=== PATIENT | male | born 1965 | race Caucasian/White ===

== ENCOUNTER 2019-02-14 19:45 | Emergency (ER) | payer SELFPAY ==
[2019-02-14 22:37] LABS: Absolute Lymphocytes (CBC) 3.3 K/uL (0.7-4.9); Basophils % 0.3 % (0-1.3); Lymphocytes % 33.4 % (15.3-44.8); MPV 8.4 fL (7.6-11.3); RBC Red Blood Cell Count 4.45 M/uL (4.33-5.43)
[2019-02-14 22:52] LABS: ALT/SGPT 24 U/L (12-78); AST/SGOT 31 U/L (15-37); Albumin 3.3 g/dL (3.4-5.0); Alkaline Phosphatase 110 U/L (45-117); BUN Blood Urea Nitrogen 14 mg/dL (7-18); Bicarbonate 25 mmol/L (21-32); Bilirubin Direct 0.1 mg/dL (0-0.2); Bilirubin Total 0.4 mg/dL (0.2-1.0); Glucose Level 64 mg/dL (74-106); Protein, Total 6.8 g/dL (6.4-8.2); Sodium Level 140 mmol/L (136-145)
[2019-02-14 22:56] LABS: Potassium 2.5 mmol/L (3.5-5.1)
[2019-02-14] MEDS ORDERED: POTASSIUM 25 MEQ EFFERV TAB ONE (23:01)
[2019-02-15 02:07] LABS: Urine Blood NEGATIVE (NEG); Urine Glucose NEGATIVE (NEG); Urine Protein NEGATIVE (NEG); Urine Specific Gravity 1.015 (1.005-1.030); Urine pH 7.5 (5.0-7.0)
[2019-02-15 02:17] LABS: Barbiturates NEGATIVE (NEGATIVE); Benzodiazepines NEGATIVE (NEGATIVE); Cocaine NEGATIVE (NEGATIVE); METHAMPHETAM NEGATIVE (NEGATIVE); Methadone NEGATIVE (NEGATIVE); Opiates NEGATIVE (NEGATIVE); Phencyclidine NEGATIVE (NEGATIVE); THC Cannibis NEGATIVE (NEGATIVE)
[2019-02-15] MEDS ORDERED: ACETAMINOPHEN 500 MG TAB ONE (03:51)
[2019-02-15] MEDS ORDERED: FAMOTIDINE 20 MG TAB ONE (04:10)
--- NOTE | 2019-02-15 06:30 | EKG ---
Test Date: 2019-02-14 Test Time: 20:26:47 Translator/Interpreter: PASCUAL MEASUREMENT RESULTS: Intervals: Rate: 67 VT: 180 QRSD: 110 QT: 676 QTc: 714 [place]: P: 43 VT: 180 QRS: -36 T: 52 INTERPRETIVE STATEMENTS: Normal sinus rhythm Left axis deviation Intraventricular conduction delay Abnormal ECG No previous ECG available for comparison Electronically Signed On 02-15-19 06:29:43 CDT by Ariel House
[2019-02-15] MEDS ORDERED: POTASSIUM 25 MEQ EFFERV TAB ONE ×3 (07:11→18:52)
[2019-02-15] MEDS ORDERED: ACETAMINOPHEN 325 MG TABLET ONE (12:20)
[2019-02-15] MEDS ORDERED: NS KCL 20MEQ 1,000 ML IV ONE (14:35)
[2019-02-15] MEDS ORDERED: KCL 20 MEQ/100 mL IVPB 40 MEQ/200 ML BAG IV ONE (14:36)
--- NOTE | 2019-02-15 18:48 | ER ---
Nurse's Notes [facility] Name: Fantasma Rdz Age: 54 yrs Sex: Male : 1965 Arrival Date: 02/14/2019 Time: 19:49 Bed 20 Private MD: Diagnosis: Schizophrenia;Hypokalemia;Psychotic disorder with hallucinations due to known physiological condition Presentation: 02/14 19:54 Presenting complaint: EMS states: Pt hearing auditory hallucinations telling him to do things. PT stated he wanted to go back to [facility]. Transition of care: patient was not received from another setting of care. Onset of symptoms was February 14, 2019. Risk Assessment: Do you want to hurt yourself or someone else? Patient reports no desire to harm self or others. Initial Sepsis Screen: Does the patient meet any 2 criteria? No. Patient's initial sepsis screen is negative. Does the patient have a suspected source of infection? No. Patient's initial sepsis screen is negative. Care prior to arrival: None. 19:54 Method Of Arrival: EMS: [facility] 19:54 Acuity: RUT 2 Historical: - Allergies: 20:00 Aspirin; 20:00 PENICILLINS; 20:00 ambien; - Home Meds: 20:00 gabapentin 400 mg oral cap 1 cap 3 times per day [Active]; Propranolol Oral [Active]; ziprasidone HCl 60 mg oral cap 1 cap daily [Active]; bupropion HCl 150 mg Oral TbER 1 tab once daily [Active]; [place] Carbonate Oral [Active]; furosemide 40 mg Oral tab 1 tab 2 times per day [Active]; - PMHx: 20:00 Unable to obtain; - PSHx: 20:00 Elbow Surgery; - Immunization history:: Adult Immunizations unknown. - Social history:: Smoking status: Patient/guardian denies using tobacco. - Ebola Screening: : Patient negative for fever greater than or equal to 101.5 degrees Fahrenheit, and additional compatible Ebola Virus Disease symptoms Patient denies exposure to infectious person. Screenin:56 Abuse screen: Denies threats or abuse. Denies injuries from another. Nutritional screening: No deficits noted. Tuberculosis screening: No symptoms or risk factors identified. Fall Risk None identified. Assessment: 20:00 General: Appears in no apparent distress. Behavior is cooperative. Pain: Complains of pain in Right Knee Pain does not radiate. Pain currently is 4 out of 10 on a pain scale. Quality of pain is described as aching, Pain began gradually. Neuro: Level of Consciousness is awake, alert, obeys commands, Oriented to person, place, time, situation. Cardiovascular: Heart tones S1 S2. Cardiovascular: Heart tones. Respiratory: Reports Respiratory: Airway is patent Respiratory effort is even, unlabored, Respiratory pattern is regular, symmetrical. GI: Abdomen is round non-distended. : No signs and/or symptoms were reported regarding the genitourinary system. EENT: No signs and/or symptoms were reported regarding the EENT system. Derm: Skin is intact, Skin is pink, warm \T\ dry. Musculoskeletal: Circulation, motion, and sensation intact. 21:20 Reassessment: Patient appears in no apparent distress at this time. No changes from previously documented assessment. Patient and/or family updated on plan of care and expected duration. Pain level reassessed. Patient is alert, oriented x 3, equal unlabored respirations, skin warm/dry/pink. 22:40 Reassessment: Patient appears in no apparent distress at this time. No changes from previously documented assessment. Patient and/or family updated on plan of care and expected duration. Pain level reassessed. Patient is alert, oriented x 3, equal unlabored respirations, skin warm/dry/pink. 02/15 00:01 Reassessment: Patient appears in no apparent distress at this time. No changes from previously documented assessment. Patient and/or family updated on plan of care and expected duration. Pain level reassessed. Patient is alert, oriented x 3, equal unlabored respirations, skin warm/dry/pink. PT BS was 64, Pt stated he hasn't had dinner yet, sandwich and juice was given. BS recheck 95 Patient denies pain at this time. 01:06 Reassessment: Patient appears in no apparent distress at this time. No changes from previously documented assessment. Patient and/or family updated on plan of care and expected duration. Pain level reassessed. Patient is alert, oriented x 3, equal unlabored respirations, skin warm/dry/pink. Pt sleeping well no signs of distress noted Patient denies pain at this time. 02:05 Reassessment: Patient appears in no apparent distress at this time. No changes from previously documented assessment. Patient and/or family updated on plan of care and expected duration. Pain level reassessed. Patient is alert, oriented x 3, equal unlabored respirations, skin warm/dry/pink. Pt was given bath and oral care Patient denies pain at this time. 03:20 Reassessment: Patient appears in no apparent distress at this time. Patient and/or jd3 family updated on plan of care and expected duration. Pain level reassessed. Patient is alert, oriented x 3, equal unlabored respirations, skin warm/dry/pink. pt resting in be with eyes closed, even and unlabored respirations. awaiting disposition. 04:14 Reassessment: Patient appears in no apparent distress at this time. Patient and/or jd3 family updated on plan of care and expected duration. Pain level reassessed. Patient is alert, oriented x 3, equal unlabored respirations, skin warm/dry/pink. pt requesting heartburn mediation, provider notified, new orders received, see MAR. 05:14 Reassessment: Patient appears in no apparent distress at this time. Patient and/or jd3 family updated on plan of care and expected duration. Pain level reassessed. Patient is alert, oriented x 3, equal unlabored respirations, skin warm/dry/pink. awaiting disposition. pt resting in bed watching TV. Patient states feeling better. 06:42 Reassessment: Patient appears in no apparent distress at this time. No changes from j previously documented assessment. Patient and/or family updated on plan of care and expected duration. Pain level reassessed. Patient is alert, oriented x 3, equal unlabored respirations, skin warm/dry/pink. 07:10 General: Appears in no apparent distress. comfortable, Behavior is calm, cooperative. sv Pain: Denies pain. Neuro: Level of Consciousness is awake, alert, obeys commands, Oriented to person, place, Moves all extremities. Full function Gait is steady. Respiratory: Respiratory effort is even, unlabored, Respiratory pattern is regular, symmetrical. Derm: Skin is normal. 09:32 Reassessment: Patient appears in no apparent distress at this time. No changes from sv previously documented assessment. Patient and/or family updated on plan of care and expected duration. Pain level reassessed. Patient is alert, oriented x 3, equal unlabored respirations, skin warm/dry/pink. Pt noted to be speaking to himself in the room. 10:11 Reassessment: Mallorie SKINNER from [facility] stated that his potassium is too low at this sv time and we can fax the new potassium level once it is 3.5. 10:29 Reassessment: Lab at the bedside obtaining repeat potassium level. sv 12:00 Reassessment: Patient appears in no apparent distress at this time. No changes from sv previously documented assessment. Patient and/or family updated on plan of care and expected duration. Pain level reassessed. Patient is alert, oriented x 3, equal unlabored respirations, skin warm/dry/pink. Pt given lunch tray, c/o back pain. Informed Dr Muse, medication ordered. 14:09 Reassessment: Patient appears in no apparent distress at this time. No changes from sv previously documented assessment. Pt appears to be resting with eyes closed, no distress noted. Respiratory: Respiratory effort is even, unlabored. 16:00 Reassessment: Patient appears in no apparent distress at this time. No changes from sv previously documented assessment. Patient and/or family updated on plan of care and expected duration. Pain level reassessed. Patient is alert, oriented x 3, equal unlabored respirations, skin warm/dry/pink. 18:25 Reassessment: Patient appears in no apparent distress at this time. Patient and/or sv family updated on plan of care and expected duration. Pain level reassessed. Patient is alert, oriented x 3, equal unlabored respirations, skin warm/dry/pink. 19:15 Reassessment: Patient appears in no apparent distress at this time. Patient and/or jb4 family updated on plan of care and expected duration. Pain level reassessed. Patient is alert, oriented x 3, equal unlabored respirations, skin warm/dry/pink. 20:30 Reassessment: Patient appears in no apparent distress at this time. Patient and/or jb4 family updated on plan of care and expected duration. Pain level reassessed. Patient is alert, oriented x 3, equal unlabored respirations, skin warm/dry/pink. 21:30 Reassessment: Patient appears in no apparent distress at this time. Patient and/or jb4 family updated on plan of care and expected duration. Pain level reassessed. Patient is alert, oriented x 3, equal unlabored respirations, skin warm/dry/pink. 22:30 Reassessment: Patient appears in no apparent distress at this time. Patient and/or jb4 family updated on plan of care and expected duration. Pain level reassessed. Patient is alert, oriented x 3, equal unlabored respirations, skin warm/dry/pink. 23:30 Reassessment: Patient appears in no apparent distress at this time. Patient and/or jb4 family updated on plan of care and expected duration. Pain level reassessed. Patient is alert, oriented x 3, equal unlabored respirations, skin warm/dry/pink. Psych: 02/14 20:02 Subjective: Patient's mood is sad, Hallucinations are auditory. Objective: Patient is wh cooperative, Speech is normal, Affect is flat. Interventions: Removed personal items and placed in bag. Patient placed in hospital gown. Searched person for dangerous items. Urine collected and sent for urine drug test. Belonging list filled out. Suicide Risk Assessment: Sad Person Scale: Sex of patient: Male: Score 1 point. Age of patient: Score 0 point if patient falls outside of specified age parameters. Safety Checks: Personal items have been removed. Pt has been placed in a hallway bed/chair. No visitors are present at this time. Pt denies substance abuse. Commitment: Patient will be a voluntary commitment. Vital Signs: 20:03 BP 112 / 79; Pulse 68; Resp 18; Temp 99.4; Pulse Ox 99% ; Weight 110.68 kg; Height 5 wh ft. 10 in. (177.80 cm); 21:20 BP 110 / 62; Pulse 66; Resp 18; Pulse Ox 98% on R/A; wh 22:35 BP 124 / 80; Pulse 66; Resp 18; Pulse Ox 95% ; wh 02/15 00:01 BP 114 / 67; Pulse 67; Resp 18; Pulse Ox 99% on R/A; wh 01:06 BP 115 / 64; Pulse 68; Resp 16; Pulse Ox 96% on R/A; wh 02:05 BP 138 / 93; Pulse 75; Resp 18; Pulse Ox 98% on R/A; wh 06:15 BP 104 / 62 LA Sitting (auto/lg); Pulse 80 MON; Resp 16 S; Pulse Ox 100% on R/A; ds4 09:58 BP 119 / 62; Pulse 71; Resp 17; Pulse Ox 98% on R/A; jb1 15:35 BP 120 / 67; Pulse 81; Resp 18; Pulse Ox 97% on R/A; jb1 18:51 BP 114 / 61; Pulse 77; Resp 17; Temp 98.9(O); Pulse Ox 98% on R/A; jb1 20:30 BP 152 / 80; Pulse 75; Resp 18; Pulse Ox 95% on R/A; jb4 21:30 BP 141 / 81; Pulse 72; Resp 16; Pulse Ox 100% on R/A; jb4 22:30 BP 106 / 52; Pulse 75; Resp 16; Pulse Ox 99% on R/A; jb4 02/16 00:00 BP 133 / 58; Pulse 73; Resp 16; Pulse Ox 99% on R/A; jb4 00:47 BP 142 / 75; Pulse 75; Resp 16; Temp 98.6(TE); Pulse Ox 99% ; jb4 02/14 20:03 Body Mass Index 35.01 (110.68 kg, 177.80 cm) ED Course: 02/14 19:49 Patient arrived in ED. wh 19:53 Won Lau is Primary Nurse. wh 19:55 James Melo MD is Attending Physician. tw4 19:56 Triage completed. wh 20:02 Arm band placed on left wrist. wh 20:03 Patient has correct armband on for positive identification. Placed in gown. Bed in low wh position. Call light in reach. Side rails up X 1. Pulse ox on. NIBP on. 20:45 Missed attempt(s): 22 gauge in left antecubital area. wh 21:12 Missed attempt(s): 20 gauge in right forearm. Bleeding controlled, band aid applied, ds4 catheter tip intact. 02/15 02:01 Urine Drug Screen Sent. ds4 07:52 Primary Nurse role handed off by Won Lau sv 07:52 Susan Toney, RN is Primary Nurse. sv 10:52 refaxed chart to [facility]. bd 11:55 Lab(s) recollected, by farm labor contractor, sent to lab. sv 14:31 Attending Physician role handed off by James Melo MD danita 14:31 Fernando Muse MD is Attending Physician. danita 14:39 LAB Add On Sent. sv 14:45 Inserted saline lock: 20 gauge in right forearm, using aseptic technique. Flushed right sv forearm with 5 ml normal saline. 19:01 Primary Nurse role handed off by Susan Toney RN sv 19:06 Nilton Rosen, SUSANNE is Primary Nurse. jb4 02/16 00:47 No provider procedures requiring assistance completed. IV discontinued, intact, jb4 bleeding controlled, No redness/swelling at site. Pressure dressing applied. Administered Medications: 02/14 23:03 Drug: Potassium Effervescent Tablet 50 mEq Route: PO; 02/15 01:26 Follow up: Response: No adverse reaction wh 03:58 Drug: Tylenol 500 mg Route: PO; jd3 04:55 Follow up: Response: No adverse reaction jd3 04:13 Drug: Pepcid 20 mg Route: PO; jd3 05:10 Follow up: Response: No adverse reaction jd3 07:27 Drug: Potassium Effervescent Tablet 50 mEq Route: PO; sv 08:00 Follow up: Response: No adverse reaction ss 12:00 Drug: Tylenol 650 mg Route: PO; sv 13:00 Follow up: Response: No adverse reaction sv 15:00 Drug: Potassium Chloride 20 mEq Route: IV; Rate: per protocol; Site: right forearm; sv 16:52 Follow up: Response: No adverse reaction; IV Status: Completed infusion; IV Intake: sv 100ml 15:00 Drug: Potassium Effervescent Tablet 50 mEq Route: PO; sv 16:00 Follow up: Response: No adverse reaction sv 15:00 Drug: NS 0.9% with KCl 20 mEq/L 1000 ml Route: IV; Rate: 125 ml/hr; Site: right forearm;sv 23:00 Follow up: Response: No adverse reaction; IV Status: Completed infusion; IV Intake: jb4 1000ml 16:53 Drug: Potassium Chloride 20 mEq Route: IV; Rate: per protocol; Site: right forearm; sv 19:00 Follow up: Response: No adverse reaction; IV Status: Completed infusion jb4 19:03 Drug: Potassium Effervescent Tablet 25 mEq Route: PO; sv 19:30 Follow up: Response: No adverse reaction jb4 Intake: 16:52 IV: 100ml; Total: 100ml. sv 23:00 IV: 1000ml; Total: 1100ml. jb4 Outcome: 18:47 ER care complete, transfer ordered by MD. samayoa 02/16 00:47 Transferred by ground EMS Transfer form completed. jb4 Condition: stable Discharge instructions given to patient, Instructed on the need for transfer, Demonstrated understanding of instructions. 00:54 Patient left the ED. jb4 Signatures: Brian Pickett jb1 Sandra Goldstein Stephanie, RN Fernando Patel MD MD cha Smirch, Shelby, RN RN ss Swanson, Donovan ds4 Nilton Rosen RN RN jb4 Won Lau Chavez Lim RN RN jd3 James Melo MD MD tw4 Corrections: (The following items were deleted from the chart) 02/14 23:15 19:54 Risk Assessment: Do you want to hurt yourself or someone else? Patient reports desire/thoughts of hurting themselves or someone else. Provider notified. 23:16 20:00 PSHx: Unable to obtain; [facility] 23:17 20:02 Suicide Risk Assessment: Sad Person Scale: Sex of patient: Male: Score 1 point. Age of patient: Score 0 point if patient falls outside of specified age parameters. Depression: Score 1 point if signs of depression are present. Previous Attempt: Score 0 point if patient has not previously attempted suicide.
--- NOTE | 2019-02-15 18:48 | EDPHYS ---
Physician Documentation [facility] Name: Fantasma Rdz Age: 54 yrs Sex: Male : 1965 Arrival Date: 02/14/2019 Time: 19:49 Bed 20 Private MD: ED Physician Fernando Muse HPI: 02/15 07:02 This 54 yrs old Male presents to ER via EMS with complaints of Psych Problem. tw4 07:02 The patient presents to the emergency department with psychosis, has experienced tw4 auditory hallucinations, voices are telling patient to commit sucide, has experienced visual hallucinations. Onset: The symptoms/episode began/occurred. Historical: - Allergies: 02/14 20:00 Aspirin; 20:00 PENICILLINS; 20:00 ambien; - Home Meds: 20:00 gabapentin 400 mg oral cap 1 cap 3 times per day [Active]; Propranolol Oral [Active]; ziprasidone HCl 60 mg oral cap 1 cap daily [Active]; bupropion HCl 150 mg Oral TbER 1 tab once daily [Active]; [place] Carbonate Oral [Active]; furosemide 40 mg Oral tab 1 tab 2 times per day [Active]; - PMHx: 20:00 Unable to obtain; - PSHx: 20:00 Elbow Surgery; - Immunization history:: Adult Immunizations unknown. - Social history:: Smoking status: Patient/guardian denies using tobacco. - Ebola Screening: : Patient negative for fever greater than or equal to 101.5 degrees Fahrenheit, and additional compatible Ebola Virus Disease symptoms Patient denies exposure to infectious person. ROS: 02/15 07:10 Constitutional: Negative for fever, chills, and weight loss, Eyes: Negative for injury, tw4 pain, redness, and discharge, Cardiovascular: Negative for chest pain, palpitations, and edema, Respiratory: Negative for shortness of breath, cough, wheezing, and pleuritic chest pain, Abdomen/GI: Negative for abdominal pain, nausea, vomiting, diarrhea, and constipation, Back: Negative for injury and pain, MS/Extremity: Negative for injury and deformity, Skin: Negative for injury, rash, and discoloration, Neuro: Negative for headache, weakness, numbness, tingling, and seizure. Psych: Positive for auditory hallucinations, visual hallucinations, Negative for anxiety, depression, drug dependence, suicide gesture, suicidal ideation. Exam: 07:10 Constitutional: This is a well developed, well nourished patient who is awake, alert, tw4 and in no acute distress. Head/Face: Normocephalic, atraumatic. Chest/axilla: Normal chest wall appearance and motion. Nontender with no deformity. No lesions are appreciated. Cardiovascular: Regular rate and rhythm with a normal S1 and S2. No gallops, murmurs, or rubs. Normal PMI, no JVD. No pulse deficits. Respiratory: Lungs have equal breath sounds bilaterally, clear to auscultation and percussion. No rales, rhonchi or wheezes noted. No increased work of breathing, no retractions or nasal flaring. Abdomen/GI: Soft, non-tender, with normal bowel sounds. No distension or tympany. No guarding or rebound. No evidence of tenderness throughout. Back: No spinal tenderness. No costovertebral tenderness. Full range of motion. Skin: Warm, dry with normal turgor. Normal color with no rashes, no lesions, and no evidence of cellulitis. MS/ Extremity: Pulses equal, no cyanosis. Neurovascular intact. Full, normal range of motion. Neuro: Awake and alert, GCS 15, oriented to person, place, time, and situation. Cranial nerves II-XII grossly intact. Motor strength 5/5 in all extremities. Sensory grossly intact. Cerebellar exam normal. Normal gait. 07:10 Psych: Behavior/mood is pleasant, cooperative, Affect is flat, Oriented to person, place, time, Patient has no thoughts/intents to harm self or others. Judgement / Insight is impaired. Delusions/hallucinations are present and described as telling him to hurt himself. Vital Signs: 02/14 20:03 BP 112 / 79; Pulse 68; Resp 18; Temp 99.4; Pulse Ox 99% ; Weight 110.68 kg; Height 5 wh ft. 10 in. (177.80 cm); 21:20 BP 110 / 62; Pulse 66; Resp 18; Pulse Ox 98% on R/A; wh 22:35 BP 124 / 80; Pulse 66; Resp 18; Pulse Ox 95% ; wh 02/15 00:01 BP 114 / 67; Pulse 67; Resp 18; Pulse Ox 99% on R/A; wh 01:06 BP 115 / 64; Pulse 68; Resp 16; Pulse Ox 96% on R/A; 02:05 BP 138 / 93; Pulse 75; Resp 18; Pulse Ox 98% on R/A; 06:15 BP 104 / 62 LA Sitting (auto/lg); Pulse 80 MON; Resp 16 S; Pulse Ox 100% on R/A; ds4 09:58 BP 119 / 62; Pulse 71; Resp 17; Pulse Ox 98% on R/A; jb1 15:35 BP 120 / 67; Pulse 81; Resp 18; Pulse Ox 97% on R/A; jb1 18:51 BP 114 / 61; Pulse 77; Resp 17; Temp 98.9(O); Pulse Ox 98% on R/A; jb1 20:30 BP 152 / 80; Pulse 75; Resp 18; Pulse Ox 95% on R/A; jb4 21:30 BP 141 / 81; Pulse 72; Resp 16; Pulse Ox 100% on R/A; jb4 22:30 BP 106 / 52; Pulse 75; Resp 16; Pulse Ox 99% on R/A; jb4 02/16 00:00 BP 133 / 58; Pulse 73; Resp 16; Pulse Ox 99% on R/A; jb4 00:47 BP 142 / 75; Pulse 75; Resp 16; Temp 98.6(TE); Pulse Ox 99% ; 4 02/14 20:03 Body Mass Index 35.01 (110.68 kg, 177.80 cm) MDM: 02/14 19:55 Patient medically screened. [facility] 02/14 20:10 Order name: Acetaminophen; Complete Time: 22:57 [facility] 02/14 20:10 Order name: Basic Metabolic Panel; Complete Time: 22:57 [facility] 02/14 22:57 Interpretation: Normal except: K 2.5; GLUC 64; CRE 1.50; GFR 49. [facility] 02/14 20:10 Order name: CBC with Diff; Complete Time: 22:57 [facility] 02/14 22:57 Interpretation: Normal except: HGB 12.0; HCT 36.0; RDW 17.2. [facility] 02/14 20:10 Order name: ETOH Level; Complete Time: 14:32 [facility] 02/14 20:10 Order name: Hepatic Function; Complete Time: 22:57 [facility] 02/14 22:57 Interpretation: Normal except: ALB 3.3; A/G 0.9. [facility] 02/14 20:10 Order name: Salicylate; Complete Time: 14:32 [facility] 02/14 20:10 Order name: Urine Drug Screen; Complete Time: 14:32 tw4 02/15 00:08 Order name: glucometer results - FOR PT WITH NO ID; Complete Time: 14:32 wh 02/15 00:12 Order name: Glucose, Ancillary Testing; Complete Time: 14:32 EDMS 02/15 02:01 Order name: Urine Dipstick--Ancillary (enter results); Complete Time: 14:32 4 02/15 06:17 Order name: Potassium; Complete Time: 14:32 j 02/15 10:14 Order name: Potassium; Complete Time: 14:32 02/14 20:10 Order name: EKG; Complete Time: 20:10 [facility] 02/15 07:14 Order name: Diet Regular; Complete Time: 07:14 02/15 11:40 Order name: Diet Regular; Complete Time: 11:40 02/15 14:34 Order name: Phosphorus; Complete Time: 18:17 [facility] 02/15 14:35 Order name: LAB Add On bd 02/15 18:18 Order name: Chem 7; Complete Time: 23:06 [facility] 02/14 20:10 Order name: EKG - Nurse/Tech; Complete Time: 21:15 [facility] 02/14 20:10 Order name: IV Saline Lock; Complete Time: 22:40 [facility] 02/14 20:10 Order name: Labs collected and sent; Complete Time: 22:40 [facility] 02/14 20:10 Order name: Urine Dipstick-Ancillary (obtain specimen); Complete Time: 02:01 [facility] 02/15 11:10 Order name: Labs - recollect needed; Complete Time: 11:55 bd Administered Medications: 23:03 Drug: Potassium Effervescent Tablet 50 mEq Route: PO; 02/15 01:26 Follow up: Response: No adverse reaction 03:58 Drug: Tylenol 500 mg Route: PO; jd3 04:55 Follow up: Response: No adverse reaction jd3 04:13 Drug: Pepcid 20 mg Route: PO; jd3 05:10 Follow up: Response: No adverse reaction jd3 07:27 Drug: Potassium Effervescent Tablet 50 mEq Route: PO; sv 08:00 Follow up: Response: No adverse reaction ss 12:00 Drug: Tylenol 650 mg Route: PO; sv 13:00 Follow up: Response: No adverse reaction sv 15:00 Drug: Potassium Chloride 20 mEq Route: IV; Rate: per protocol; Site: right forearm; sv 16:52 Follow up: Response: No adverse reaction; IV Status: Completed infusion; IV Intake: sv 100ml 15:00 Drug: Potassium Effervescent Tablet 50 mEq Route: PO; sv 16:00 Follow up: Response: No adverse reaction sv 15:00 Drug: NS 0.9% with KCl 20 mEq/L 1000 ml Route: IV; Rate: 125 ml/hr; Site: right forearm;sv 23:00 Follow up: Response: No adverse reaction; IV Status: Completed infusion; IV Intake: jb4 1000ml 16:53 Drug: Potassium Chloride 20 mEq Route: IV; Rate: per protocol; Site: right forearm; sv 19:00 Follow up: Response: No adverse reaction; IV Status: Completed infusion jb4 19:03 Drug: Potassium Effervescent Tablet 25 mEq Route: PO; sv 19:30 Follow up: Response: No adverse reaction jb4 Disposition: 02/15/19 18:47 Transfer ordered to Psych Facility. Diagnosis are Schizophrenia, Hypokalemia, Psychotic disorder with hallucinations due to known physiological condition. - Reason for transfer: Higher level of care. - Accepting physician is to psych. - Condition is Stable. - Problem is new. - Symptoms have improved. Signatures: Dispatcher [employer] EDMS Sandra Goldstein Stephanie, RN RN sv Anderson, Corey, MD MD cha Bryson, James RN RN jb4 Won Lau Chavez Lim RN RN jd3 Wadley, Terrence, MD MD tw4 Juhi Marmolejo RN ss Corrections: (The following items were deleted from the chart) 02/14 23:16 20:00 PSHx: Unable to obtain; [facility] 02/15 00:55 02/14 20:10 PROTIME (+INR)+COAG.LAB.BRZ ordered. EDMS EDMS 02/15 00:55 02/14 20:10 PTT, ACTIVATED+COAG.LAB.BRZ ordered. EDMS EDMS 02/16 00:54 10/30 18:47 02/15/2019 18:47 Transfer ordered to Psych Facility. Diagnosis is jb4 Schizophrenia; Hypokalemia; Psychotic disorder with hallucinations due to known physiological condition. Reason for transfer: Higher level of care. Accepting physician is to psych. Condition is Stable. Problem is new. Symptoms have improved. danita
[2019-02-15 20:36] LABS: Potassium 4.6 mmol/L (3.5-5.1)
[2019-02-16 01:21] VITALS: O2SAT 99
[2019-02-16 01:24] VITALS: BP 142/75; TEMP 98.6
== END 2019-02-16 00:54 ==
LOC: ER 19:45
DX: F20.9 Schizophrenia, unspecified (principal); E87.6 Hypokalemia; F06.8 Other specified mental disorders due to known physiological condition; Z88.0 Allergy status to penicillin; Z88.8 Allergy status to other drugs, medicaments and biological substances
CPT/HCPCS: 36415; 80048; 80076; 80320; 80329; 85025; 93005; 96361; 96365; 96366; 99285

== ENCOUNTER 2024-05-25 23:39 | Emergency (ER) | payer OTHER, SELFPAY ==
[2024-05-26] MEDS ORDERED: ONDANSETRON 4 MG/2 ML VIAL ONE (00:43)
[2024-05-26] MEDS ORDERED: NA CHLORIDE 0.9% 1,000 ML ONE (00:44)
[2024-05-26] MEDS ORDERED: FENTANYL CITR 100 MCG/2 ML ONE ×2 (00:44→02:42)
[2024-05-26 00:55] LABS: Absolute Basophils 0.1 K/uL (0-0.5); Absolute Eosinophils 0.2 K/uL (0-0.5); Absolute Lymphocytes (CBC) 2.4 K/uL (0.7-4.9); Absolute Monocytes 0.5 K/uL (0.1-1.3); Absolute Neutrophil 4.1 K/uL (1.8-8.0); Eosinophils % 2.6 % (0-4.4); Hematocrit 41.4 % (39.6-49.0); Hemoglobin 14.1 g/dL (13.6-17.9); Lymphocytes % 32.8 % (15.3-44.8); MCH 32.1 pg (27.0-35.0); MCV 94.3 fL (80-100); MPV 8.6 fL (7.6-11.3); Monocytes % 6.3 % (3.3-12.3); Neutrophils % 57.3 % (41.7-73.7); Nucleated Red Blood Cells % 0.2 % (0-0); Platelets 179 thou/uL (152-406); Red Cell Distribution Width 13.5 % (12.1-15.2)
[2024-05-26 01:12] LABS: Albumin 3.2 g/dL (3.4-5.0); Albumin/Globulin Ratio 0.9 (1.1-1.8); Bilirubin Total 0.2 mg/dL (0.2-1.0); Globulin 3.4 g/dL (2.3-3.5); Protein, Total 6.6 g/dL (6.4-8.2)
--- NOTE | 2024-05-26 05:00 | RAD REPORT ---
EXAM DESCRIPTION: Abdomen Pelvis W Contrast CLINICAL HISTORY: ABD PAIN COMPARISON: None Available. TECHNIQUE: CT of the abdomen and pelvis performed following the administration of IV contrast. No ora l contrast. This exam was performed according to our departmental dose-optimization program, which includes automated exposure control, adjustment of the mA and/or kV according to patient size and/or use of iterative reconstruction technique. FINDINGS: Lung Bases: Mild bibasilar atelectasis. Abdomen: Liver: Slightly lobulated contour, most pronounced in the left hepatic lobe which is small compared t o the right. No suspicious mass. Gallbladder: Surgically absent. No significant biliary dilatation. Spleen, Pancreas, and Adrenal Glands: The spleen, pancreas, and adrenal glands are unremarkable. Kidneys: No suspicious mass. No urinary tract calculi. No hydronephrosis. Vasculature: The aorta and IVC have normal caliber and position. Stomach: The stomach and duodenum have normal course. Other: No free intraperitoneal air. No free fluid or lymphadenopathy. Pelvis: Bladder: Decompressed. Bowel: No dilated loops of large or small bowel. Moderate stool in the colon. Appendix: Normal appendix. Pelvis: No suspicious mass. Bones: Postsurgical changes related to posterior yane and screw fixation at L4-5. Associated artifact from hardware obscures detail of adjacent structures. No suspicious bone lesions. IMPRESSION: 1. No acute abnormality on CT of the abdomen and pelvis. 2. Slightly lobulated contour of the liver. Correlate with any history of cirrhosis. 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 reporting system, reports are being shira d by the in-house radiologist without review as a courtesy to ensure prompt reporting the interpreting radiologist is fully responsible for the content of the report. Transcribed Date/Time: 05/26/2024 5:00 AM
--- NOTE | 2024-05-26 05:11 | ER ---
Nurse's Notes [facility] Name: Fantasma Rdz Age: 59 yrs Sex: Male : 1965 Arrival Date: 05/25/2024 Time: 23:39 Bed 14 Private MD: Diagnosis: Abdominal pain, unspecified Presentation: 05/25 23:40 Chief complaint: EMS states: toned out to [facility] for abdominal pain that me1 started about 1500 to RUQ, 8/10. Patient had a bm today and ate dinner about 16:30, tolerated well. Coronavirus screen: Vaccine status: Patient reports receiving the 2nd dose of the covid vaccine. Ebola Screen: No symptoms or risks identified at this time. Initial Sepsis Screen: Does the patient meet any 2 criteria? No. Patient's initial sepsis screen is negative. Does the patient have a suspected source of infection? No. Patient's initial sepsis screen is negative. Risk Assessment: Do you want to hurt yourself or someone else? Patient reports no desire to harm self or others. Onset of symptoms was May 25, 2024 at 15:00. 23:40 Method Of Arrival: EMS: [facility] 23:40 Acuity: RUT 3 me1 Triage Assessment: 23:43 General: Appears uncomfortable, Behavior is calm, cooperative. Pain: Complains of pain br2 in right upper quadrant Pain does not radiate. Pain currently is 8 out of 10 on a pain scale. GI: Abdomen is round Abdomen is tender to palpation in right upper quadrant Reports upper abdominal pain. Historical: - Allergies: 23:43 ambien; me1 23:43 Aspirin; me1 23:43 PENICILLINS; me1 23:43 dihydroergotamine; me1 23:43 Primaxin; me1 23:43 Toradol; me1 23:43 Vioxx; me1 23:43 ACETAMINOPHEN; me1 23:43 tramadol; me1 - PMHx: 23:44 Dementia; Hypothyroidism; Hypercholesterolemia; Schizophrenia; Bipolar disorder; me1 Hypertensive disorder; frostbite left foot; - Immunization history:: Adult Immunizations up to date. - Infectious Disease History:: Denies. - Social history:: Smoking status: unknown. - Family history:: not pertinent. Screenin:40 [facility] ED Fall Risk Assessment (Adult) History of falling in the last 3 months, br2 including since admission No falls in past 3 months (0 pts) Confusion or Disorientation No (0 pts) Intoxicated or Sedated No (0 pts) Impaired Gait No (0 pts) Mobility Assist Device Used No (0 pt) Altered Elimination No (0 pt) Score/Fall Risk Level 0 - 2 = Low Risk Oriented to surroundings. Abuse screen: Denies threats or abuse. Denies injuries from another. Nutritional screening: No deficits noted. Tuberculosis screening: No symptoms or risk factors identified. Assessment: 23:40 Reassessment: SEE TRIAGE ASSESSMENT. br2 05/26 05:51 Reassessment: Disposition pending, [facility] to arrange transportation. cp4 06:45 GI: Bowel sounds present X 4 quads. cp4 Vital Signs: 05/25 23:40 BP 127 / 81; Pulse 78; Resp 18; Temp 97.9; Pulse Ox 96% ; Weight 131.54 kg; Height 5 me1 ft. 10 in. ; Pain 8/10; 05/26 02:34 BP 172 / 105; Pulse 67; Resp 18; Pulse Ox 96% ; cp4 04:46 BP 152 / 90; Pulse 66; Resp 18; Pulse Ox 98% ; cp4 06:10 BP 140 / 95; Pulse 64; Resp 18; Pulse Ox 98% ; cp4 05/25 23:40 Body Mass Index 41.61 (131.54 kg, 177.8 cm) me1 02 23:40 Pain Scale: Adult mi1 ED Course: 05/25 23:40 Patient arrived in ED. me1 23:40 Nito Soria MD is Attending Physician. rt 23:40 Patient has correct armband on for positive identification. Provided Education on: PLAN br2 OF CARE. 23:40 Inserted saline lock: 20 gauge in right forearm, using aseptic technique. br2 23:43 Triage completed. me1 23:44 Arm band placed on Patient placed in an internal wait recliner. me1 05/26 00:27 Rosario Ryder, SUSANNE is Primary Nurse. br2 01:27 CT Abd/Pelvis - IV Contrast Only In Process Unspecified. EDMS 06:12 No provider procedures requiring assistance completed. cp4 06:44 intact, bleeding controlled, No redness/swelling at site. Pressure dressing applied. cp4 Administered Medications: 01:05 Drug: Ondansetron IVP 4 mg IVP once; over 2 minutes Route: IVP; Site: left forearm; br2 04:47 Follow up: Response: No adverse reaction cp4 01:05 Drug: NS 0.9% IV 1000 ml IV at 1 bolus Per protocol; to be given as a bolus over 60 br2 minutes Route: IV; Rate: 1 bolus; Site: left forearm; 04:47 Follow up: Response: No adverse reaction; IV Status: Completed infusion cp4 01:05 Drug: fentaNYL (PF) IVP 75 mcg IVP once Route: IVP; Site: left forearm; br2 04:47 Follow up: Response: No adverse reaction cp4 02:55 Drug: fentaNYL (PF) IVP 75 mcg IVP once Route: IVP; Site: right forearm; jj7 04:47 Follow up: Response: No adverse reaction cp4 Medication: 06:47 VIS not applicable for this client. cp4 Outcome: 05:11 Discharge ordered by . rt 06:44 Discharged to [facility] cp4 06:44 Condition: stable 06:44 Discharge instructions given to patient, EMS, Instructed on discharge instructions, follow up and referral plans. medication usage, Demonstrated understanding of instructions, follow-up care, medications, Prescriptions given X 1, 06:48 Patient left the ED. cp4 Signatures: Dispatcher [employer] Moraima Victor RN RN jj7 Nito Soria MD MD rt Bere Herrera RN RN me1 Cristal Tamez cp4 Rosario Ryder RN RN br2
--- NOTE | 2024-05-26 05:11 | EDPHYS ---
Physician Documentation [facility] Name: Fantasma Rdz Age: 59 yrs Sex: Male : 1965 Arrival Date: 05/25/2024 Time: 23:39 Bed 14 Private MD: ED Physician Nito Soria HPI: 05/26 00:31 This 59 yrs old Male presents to ER via EMS with complaints of Abdominal Pain. rt 00:31 Patient presents to the ED with a right upper quadrant pain starting at about 3. Has rt been progressively worsening. Reports nausea vomiting. Patient states that his normal bowel movement earlier today. States that his had previous bowel obstructions with similar symptoms to this. Denies other acute complaints at this time, symptoms are moderate in severity, no other aggravating alleviating factors.. Historical: - Allergies: 05/25 23:43 ambien; me1 23:43 Aspirin; me1 23:43 PENICILLINS; me1 23:43 dihydroergotamine; me1 23:43 Primaxin; me1 23:43 Toradol; me1 23:43 Vioxx; me1 23:43 ACETAMINOPHEN; me1 23:43 tramadol; me1 - PMHx: 23:44 Dementia; Hypothyroidism; Hypercholesterolemia; Schizophrenia; Bipolar disorder; me1 Hypertensive disorder; frostbite left foot; - Immunization history:: Adult Immunizations up to date. - Infectious Disease History:: Denies. - Social history:: Smoking status: unknown. - Family history:: not pertinent. ROS: 05/26 00:31 Constitutional: Negative for fever, chills, and weight loss, Cardiovascular: Negative rt for chest pain, palpitations, and edema, Respiratory: Negative for shortness of breath, cough, wheezing, and pleuritic chest pain, MS/Extremity: Negative for injury and deformity, Skin: Negative for injury, rash, and discoloration, Neuro: Negative for headache, weakness, numbness, tingling, and seizure, Abdomen/GI: Positive for abdominal pain, nausea, Exam: 00:31 Constitutional: This is a well developed, well nourished patient who is awake, alert, rt and in no acute distress. Head/Face: Normocephalic, atraumatic. Chest/axilla: Normal chest wall appearance and motion. Nontender with no deformity. No lesions are appreciated. Cardiovascular: Regular rate and rhythm with a normal S1 and S2. No gallops, murmurs, or rubs. Normal PMI, no JVD. No pulse deficits. Respiratory: Lungs have equal breath sounds bilaterally, clear to auscultation and percussion. No rales, rhonchi or wheezes noted. No increased work of breathing, no retractions or nasal flaring. Skin: Warm, dry with normal turgor. Normal color with no rashes, no lesions, and no evidence of cellulitis. MS/ Extremity: Pulses equal, no cyanosis. Neurovascular intact. Full, normal range of motion. Neuro: Awake and alert, GCS 15, oriented to person, place, time, and situation. Cranial nerves II-XII grossly intact. Motor strength 5/5 in all extremities. Sensory grossly intact. Cerebellar exam normal. Normal gait. 00:31 Abdomen/GI: Mild tenderness to the epigastrium without rebound, guarding, distention, Vital Signs: 05/25 23:40 BP 127 / 81; Pulse 78; Resp 18; Temp 97.9; Pulse Ox 96% ; Weight 131.54 kg; Height 5 me1 ft. 10 in. ; Pain 8/10; 05/26 02:34 BP 172 / 105; Pulse 67; Resp 18; Pulse Ox 96% ; cp4 04:46 BP 152 / 90; Pulse 66; Resp 18; Pulse Ox 98% ; cp4 06:10 BP 140 / 95; Pulse 64; Resp 18; Pulse Ox 98% ; cp4 05/25 23:40 Body Mass Index 41.61 (131.54 kg, 177.8 cm) me1 05/25 23:40 Pain Scale: Adult me1 MDM: 05/25 23:54 Medical Screening Exam initiated rt 05/26 05:43 Differential Diagnosis Nonspecific abdominal pain, pancreatitis, bowel obstruction. rt Data reviewed: vital signs, nurses notes, lab test result(s), radiologic studies. I considered the following discharge prescriptions or medication management in the emergency department Medications were administered in the Emergency Department. See MAR. Independent interpretation of the following test(s) in the Emergency Department CT Scan: My interpretation is No bowel obstruction syndrome interpretation of CT scan images. Care significantly affected by the following chronic conditions: Hypertension. Counseling: I had a detailed discussion with the patient and/or guardian regarding the historical points, exam findings, and any diagnostic results supporting the discharge/admit diagnosis, lab results, radiology results, the need for outpatient follow up. Response to treatment: the patient's symptoms have markedly improved after treatment. 05/25 23:58 Order name: CBC with Diff; Complete Time: 01:13 rt 05/25 23:58 Order name: CMP; Complete Time: 01:13 rt 05/25 23:58 Order name: Lipase; Complete Time: 01:13 rt 05/25 23:58 Order name: CT Abd/Pelvis - IV Contrast Only rt 05/25 23:58 Order name: IV Saline Lock; Complete Time: 01:54 rt 05/25 23:58 Order name: Labs collected and sent; Complete Time: 01:54 rt Administered Medications: 01:05 Drug: Ondansetron IVP 4 mg IVP once; over 2 minutes Route: IVP; Site: left forearm; br2 04:47 Follow up: Response: No adverse reaction cp4 01:05 Drug: NS 0.9% IV 1000 ml IV at 1 bolus Per protocol; to be given as a bolus over 60 br2 minutes Route: IV; Rate: 1 bolus; Site: left forearm; 04:47 Follow up: Response: No adverse reaction; IV Status: Completed infusion cp4 01:05 Drug: fentaNYL (PF) IVP 75 mcg IVP once Route: IVP; Site: left forearm; br2 04:47 Follow up: Response: No adverse reaction cp4 02:55 Drug: fentaNYL (PF) IVP 75 mcg IVP once Route: IVP; Site: right forearm; jj7 04:47 Follow up: Response: No adverse reaction cp4 Disposition Summary: 05/26/24 05:11 Discharge Ordered Notes: Location: Home rt Problem: new rt Symptoms: have improved rt Condition: Stable rt Diagnosis - Abdominal pain, unspecified rt Followup: rt - With: Private Physician - When: Today - Reason: Discharge Instructions: - Discharge Summary Sheet rt - Abdominal Pain, Adult rt Forms: - Medication Reconciliation Form rt - Antibiotic Education rt - Prescription Opioid Use rt - Patient Portal Instructions rt - Leadership Thank You Letter rt Prescriptions: - dicyclomine 10 mg Oral capsule - take 1 capsule ORAL route 4 times per day; 15 capsule; Refills: 0, Product rt Selection Permitted Signatures: [facility]patcher [facility] Moraima Victor RN RN jj7 Nito Soria MD MD rt Bere Herrera RN RN me1 Rosario Ryder RN RN br2 Cristal Tamez cp4 Corrections: (The following items were deleted from the chart) 05/25 23:58 23:58 Abdomen Pelvis W Con+CT.RAD.BRZ ordered. EDMS EDMS
[2024-05-26 06:55] VITALS: TEMP 97.9
[2024-05-26 06:58] VITALS: O2SAT 98
[2024-05-26 06:59] VITALS: BP 140/95
== END 2024-05-26 06:48 | disposition home or self-care (01) ==
LOC: ER 23:39
DX: R10.13 Epigastric pain (principal); R10.11 Right upper quadrant pain
CPT/HCPCS: 85025; 36415; 83690; 80053; 74177; 99284; Q9967; J3010 ×2; J2405; J7030

== ENCOUNTER 2024-06-14 13:42 | Emergency (ER) | payer OTHER ==
[2024-06-14] MEDS ORDERED: FENTANYL CITR 100 MCG/2 ML ONE ×2 (14:10→15:46)
[2024-06-14] MEDS ORDERED: ONDANSETRON 4 MG/2 ML VIAL ONE (14:17)
[2024-06-14] MEDS ORDERED: DIPHENHYDRAMINE 50 MG/ML VIAL ONE (14:18)
[2024-06-14] MEDS ORDERED: FAMOTIDINE 20 MG/2 ML VIAL IV ONE (14:18)
[2024-06-14] MEDS ORDERED: NA CHLORIDE 0.9% 1,000 ML ONE (14:18)
[2024-06-14 14:38] LABS: Albumin 2.9 g/dL (3.4-5.0); Albumin/Globulin Ratio 0.8 (1.1-1.8); Anion Gap 9.1 mEq/L (5.0-15.0); Bilirubin Total 0.3 mg/dL (0.2-1.0); Globulin 3.5 g/dL (2.3-3.5); Potassium 4.1 mEq/L (3.5-5.1); Protein, Total 6.4 g/dL (6.4-8.2)
[2024-06-14 14:39] LABS: Absolute Basophils 0.1 K/uL (0-0.5); Absolute Eosinophils 0.2 K/uL (0-0.5); Absolute Lymphocytes (CBC) 2.1 K/uL (0.7-4.9); Absolute Monocytes 0.7 K/uL (0.1-1.3); Absolute Neutrophil 3.6 K/uL (1.8-8.0); Basophils % 0.9 % (0-1.3); Eosinophils % 2.5 % (0-4.4); Hematocrit 40.4 % (39.6-49.0); Hemoglobin 13.8 g/dL (13.6-17.9); Lymphocytes % 32.4 % (15.3-44.8); MCH 32.5 pg (27.0-35.0); MCV 95.6 fL (80-100); MPV 8.8 fL (7.6-11.3); Monocytes % 10.3 % (3.3-12.3); Neutrophils % 53.9 % (41.7-73.7); Nucleated Red Blood Cells % 0.3 % (0-0); Platelets 175 thou/uL (152-406); RBC Red Blood Cell Count 4.23 M/uL (4.33-5.43); Red Cell Distribution Width 14.2 % (12.1-15.2)
[2024-06-14] MEDS ORDERED: Magnesium Sulfate 2gm IVPB 2 G/50 ML BAG IV ONE (14:42)
--- NOTE | 2024-06-14 15:12 | RAD REPORT ---
EXAMINATION: CT ABDOMEN AND PELVIS WITH CONTRAST CLINICAL INDICATION: ABD PAIN TECHNIQUE: CT abdomen and pelvis was performed, after the administration of IV contrast, as per [facility] protocol. Axial, sagittal and coronal reconstructions were obtained. One or more of the following dose reduction techniques were used: Automated exposure control, adjustment of the mA and k V according to patient size, and iterative reconstruction. Unless otherwise specified, incidental findings do not require dedicated imaging follow-up. COMPARISON: 05/26/2024 FINDINGS: LOWER CHEST: The visualized lung bases are clear. LIVER: Normal in size and contour. No focal lesion. Cholecystectomy clips. SPLEEN: Normal size. No focal lesion. PANCREAS: No mass, ductal dilation, or wilmar-pancreatic fluid. ADRENALS: Normal; no mass. KIDNEYS: Normal size and contour. No hydronephrosis. GASTROINTESTINAL TRACT: No evidence of free air, significant intra-abdominal free fluid, bowel obstru ction or abscess. Moderate stool is retained throughout the colon. APPENDIX: Normal appendix. LYMPH NODES: No lymphadenopathy. MUSCULOSKELETAL: Lower lumbar posterior fusion hardware is in place. ADDITIONAL FINDINGS: None. IMPRESSION: No acute or concerning abnormalities seen in the abdomen or pelvis.
--- NOTE | 2024-06-14 15:55 | EDPHYS ---
Physician Documentation [facility] Name: Fantasma Rdz Age: 59 yrs Sex: Male : 1965 Arrival Date: 06/14/2024 Time: 13:42 Bed 26 Private MD: ED Physician Laurent Le HPI: 06/14 13:49 This 59 yrs old Male presents to ER via EMS with complaints of Abdominal Pain. kb 13:49 Pt is a 59 year old male who presents for RUQ abd pain that started 3 weeks ago with kb nausea and has progressively gotten worse. Pt states he went to a scheduled appt with Dr Najera and was in so much pain that they recommended coming to the ER for evaluation and admission for upper and lower GI scopes. . Historical: - Allergies: 13:49 ACETAMINOPHEN; me1 13:49 ambien; me1 13:49 Aspirin; me1 13:49 dihydroergotamine; me1 13:49 PENICILLINS; me1 13:49 Primaxin; me1 13:49 Toradol; me1 13:49 tramadol; me1 13:49 Vioxx; me1 - PMHx: 13:49 Bipolar disorder; Dementia; Hypercholesterolemia; frostbite left foot; Hypothyroidism; me1 Hypertensive disorder; Schizophrenia; - PSHx: 13:49 Cholecystectomy; me1 - Immunization history:: Adult Immunizations up to date. - Infectious Disease History:: Denies. - Social history:: Smoking status: Patient reports the use of cigarette tobacco products, smokes one-half pack cigarettes per day. ROS: 13:48 Constitutional: As per HPI kb Exam: 13:48 Constitutional: This is a well developed, well nourished patient who is awake, alert, kb and in no acute distress. Head/Face: Normocephalic, atraumatic. ENT: Moist Mucous membranes Cardiovascular: Regular rate Respiratory: Respirations even and unlabored. No increased work of breathing. Talking in full sentences Skin: Warm, dry with normal turgor. Normal color. MS/ Extremity: Pulses equal, no cyanosis. Neurovascular intact. Full, normal range of motion. Neuro: Awake and alert, GCS 15, oriented to person, place, time, and situation. 13:48 Abdomen/GI: Inspection: abdomen appears normal, Bowel sounds: normal, Palpation: soft, in all quadrants, moderate abdominal tenderness, in the right upper quadrant and right lower quadrant, 15:53 ECG was reviewed by the Attending Physician. Vital Signs: 13:43 BP 122 / 77; Pulse 86; Resp 18; Temp 98.4; Pulse Ox 97% ; Weight 136.08 kg; Height 5 me1 ft. 10 in. ; Pain 7/10; 14:30 BP 115 / 64; Pulse 82; Resp 20; Pulse Ox 93% on R/A; me1 14:40 Pain 4/10; me1 15:24 BP 118 / 72; Pulse 86; Resp 18; Pulse Ox 94% ; me1 15:54 BP 108 / 59; Pulse 79; Resp 20; Temp 98.4; Pulse Ox 96% ; me1 13:43 Body Mass Index 43.05 (136.08 kg, 177.8 cm) me1 13:43 Pain Scale: Adult me1 14:40 Pain Scale: Adult me1 MDM: 13:44 Medical Screening Exam initiated 13:47 Data reviewed: vital signs, nurses notes. Management of patient was discussed with the kb following: Bottling Line Attendant: Dr Najera states there is no plan for admission or need for inpatient procedures at this time. . Historians other than the Patient: EMS: [facility]. 15:53 Differential diagnosis: gastritis, gastroesophageal reflux disease, non-specific abd kb pain, pancreatitis. Counseling: I had a detailed discussion with the patient and/or guardian regarding the historical points, exam findings, and any diagnostic results supporting the discharge/admit diagnosis, lab results, radiology results, the need for outpatient follow up, a family practitioner, a follow up clerk, to return to the emergency department if symptoms worsen or persist or if there are any questions or concerns that arise at home. ED course: Pt denies chest pain, palpitations, syncope, shortness of breath. . 06/14 13:46 Order name: CBC with Diff; Complete Time: 14:44 kb 06/14 13:46 Order name: CMP; Complete Time: 14:44 kb 06/14 13:46 Order name: Lipase; Complete Time: 14:44 kb 06/14 13:46 Order name: CT Abd/Pelvis - IV Contrast Only; Complete Time: 15:14 kb 06/14 15:33 Order name: EKG; Complete Time: 15:33 ut1 06/14 13:46 Order name: IV Saline Lock; Complete Time: 14:12 kb 06/14 13:46 Order name: Labs collected and sent; Complete Time: 14:12 kb EC:53 Rate is 81 beats/min. Rhythm is regular. QRS [place] is Normal. CO interval is normal at kb 176 msec. QRS interval is normal at 98 msec. QT interval is normal at 455 msec. Administered Medications: 14:29 Drug: fentaNYL (PF) IVP 25 mcg IVP once Route: IVP; Site: left antecubital; me1 14:40 Follow up: Pain 4/10 Adult; Response: No adverse reaction; Pain is decreased me1 14:29 Drug: diphenhydrAMINE IVP 12.5 mg IVP once Route: IVP; Site: left antecubital; me1 14:39 Follow up: Response: No adverse reaction me1 14:30 Drug: Famotidine IVP 20 mg IVP once; dilute with 10 mL 0.9% NaCl; give over 2 minutes me1 Route: IVP; Site: left antecubital; 14:39 Follow up: Response: No adverse reaction me1 14:30 Drug: Ondansetron IVP 4 mg IVP once; over 2 minutes Route: IVP; Site: left antecubital; me1 14:39 Follow up: Response: No adverse reaction; Nausea is decreased me1 14:30 Drug: NS 0.9% IV 1000 ml IV at 1 bolus Per protocol; to be given as a bolus over 60 me1 minutes Route: IV; Rate: 1 bolus; Site: left antecubital; 16:10 Follow up: Response: No adverse reaction; IV Status: Completed infusion; IV Intake: me1 1000ml 14:44 Drug: Magnesium Sulfate IVPB 2 grams IVPB once over 1 hrs Route: IVPB; Infused Over: 1 me1 hrs; Site: left antecubital; 15:49 Follow up: Response: No adverse reaction; IV Status: Completed infusion; IV Intake: [id number] 15:53 Drug: fentaNYL (PF) IVP 25 mcg IVP once Route: IVP; Site: left antecubital; me1 15:55 Follow up: Response: No adverse reaction; Pain is decreased me1 Disposition: 17:43 Co-signature as Attending Physician, Laurent Le MD I reviewed the patient's care rn provided by the Advanced Practice Provider and agree with the diagnosis and treatment plan. Disposition Summary: 06/14/24 15:54 Discharge Ordered Notes: Location: Home kb Condition: Stable kb Diagnosis - Abdominal pain, Generalized kb Followup: kb - With: Emergency Department - When: As needed - Reason: Worsening of condition Followup: kb - With: Private Physician - When: 2 - 3 days - Reason: Recheck today's complaints, Continuance of care, Re-evaluation by your physician Discharge Instructions: - Discharge Summary Sheet kb - Abdominal Pain, Adult, [id number] kb Forms: - Medication Reconciliation Form kb - Antibiotic Education kb - Prescription Opioid Use kb - Patient Portal Instructions kb - Leadership Thank You Letter kb Signatures: Dispatcher [employer] EDTamela Parkinson, DONOR PROCESSOR-C DONOR PROCESSOR-Laurent Mosher MD MD rn Eddleman, Michelle, RN RN me1
--- NOTE | 2024-06-14 15:55 | ER ---
Nurse's Notes [facility] Name: Fantasma Rdz Age: 59 yrs Sex: Male : 1965 Arrival Date: 06/14/2024 Time: 13:42 Bed 26 Private MD: Diagnosis: Abdominal pain, Generalized Presentation: 06/14 13:43 Chief complaint: EMS states: toned out to GI center for abdominal pain x 3 weeks that me1 is worse today with some associated nausea. Pain is 7/10, RUQ to epigastric area. Coronavirus screen: Vaccine status:. Ebola Screen: No symptoms or risks identified at this time. Initial Sepsis Screen: Does the patient meet any 2 criteria? No. Patient's initial sepsis screen is negative. Does the patient have a suspected source of infection? No. Patient's initial sepsis screen is negative. Risk Assessment: Do you want to hurt yourself or someone else? Patient reports no desire to harm self or others. Onset of symptoms is unknown. 13:43 Method Of Arrival: EMS: [facility] [place] 13:43 Acuity: RUT 3 me1 Triage Assessment: 13:49 General: Appears in no apparent distress. Behavior is calm, cooperative, appropriate me1 for age. Pain: Complains of pain in abdomen and right lower quadrant Pain radiates to epigastric area Pain currently is 7 out of 10 on a pain scale. Quality of pain is described as sharp, Pain began gradually, Is continuous. EENT: No signs and/or symptoms were reported regarding the EENT system. Neuro: Level of Consciousness is awake, alert, obeys commands, Oriented to person, place, time, situation, Appropriate for age tremors noted to BUE. Cardiovascular: Patient's skin is warm and dry. Respiratory: Airway is patent Respiratory effort is even, unlabored, Respiratory pattern is regular, symmetrical. GI: Abdomen is round non-distended, Reports lower abdominal pain, upper abdominal pain, nausea, since 3 weeks ago. Worse today. : No signs and/or symptoms were reported regarding the genitourinary system. Derm: Skin is intact, is healthy with good turgor, Skin is pink, warm \T\ dry. Musculoskeletal: No signs and/or symptoms reported regarding the musculoskeletal system. Historical: - Allergies: 13:49 ACETAMINOPHEN; me1 13:49 ambien; me1 13:49 Aspirin; me1 13:49 dihydroergotamine; me1 13:49 PENICILLINS; me1 13:49 Primaxin; me1 13:49 Toradol; me1 13:49 tramadol; me1 13:49 Vioxx; me1 - PMHx: 13:49 Bipolar disorder; Dementia; Hypercholesterolemia; frostbite left foot; Hypothyroidism; me1 Hypertensive disorder; Schizophrenia; - PSHx: 13:49 Cholecystectomy; me1 - Immunization history:: Adult Immunizations up to date. - Infectious Disease History:: Denies. - Social history:: Smoking status: Patient reports the use of cigarette tobacco products, smokes one-half pack cigarettes per day. Screenin:51 [facility] ED Fall Risk Assessment (Adult) History of falling in the last 3 months, me1 including since admission No falls in past 3 months (0 pts) Confusion or Disorientation No (0 pts) Intoxicated or Sedated No (0 pts) Impaired Gait No (0 pts) Mobility Assist Device Used No (0 pt) Altered Elimination No (0 pt) Score/Fall Risk Level 0 - 2 = Low Risk Maintained a safe environment, Provided non-skid footwear, Hourly rounding (assess needs \T\ fall precautionary measures) done. Abuse screen: Denies threats or abuse. Nutritional screening: No deficits noted. Tuberculosis screening: No symptoms or risk factors identified. Assessment: 13:51 General: See triage assessment. me1 16:10 General: Called [facility], gave report to KARAN Guo. me1 16:16 GI: Bowel sounds present X 4 quads. Abd is soft X 4 quads. me1 Vital Signs: 13:43 BP 122 / 77; Pulse 86; Resp 18; Temp 98.4; Pulse Ox 97% ; Weight 136.08 kg; Height 5 me1 ft. 10 in. ; Pain 7/10; 14:30 BP 115 / 64; Pulse 82; Resp 20; Pulse Ox 93% on R/A; me1 14:40 Pain 4/10; me1 15:24 BP 118 / 72; Pulse 86; Resp 18; Pulse Ox 94% ; me1 15:54 BP 108 / 59; Pulse 79; Resp 20; Temp 98.4; Pulse Ox 96% ; me1 13:43 Body Mass Index 43.05 (136.08 kg, 177.8 cm) me1 13:43 Pain Scale: Adult me1 14:40 Pain Scale: Adult me1 ED Course: 13:43 Patient arrived in ED. me1 13:44 Tamela Tim FNP-C is [facility]. kb 13:44 aLurent Le MD is Attending Physician. kb 13:48 Triage completed. me1 13:49 Arm band placed on Patient placed in an exam room. me1 13:51 Patient has correct armband on for positive identification. Bed in low position. Call me1 light in reach. Side rails up X 1. Provided Education on: POC. Verbalized understanding. Client placed on continuous cardiac and pulse oximetry monitoring. NIBP monitoring applied. twist tester on. Pulse ox on. NIBP on. 13:51 No provider procedures requiring assistance completed. me1 13:53 Bere Herrera, RN is Primary Nurse. me1 14:12 Initial lab(s) drawn, by ca, sent to lab. Inserted saline lock: 20 gauge in left ca1 forearm, using aseptic technique. 14:12 CBC with Diff Sent. me1 14:12 CMP Sent. me1 14:12 Lipase Sent. me1 15:02 CT Abd/Pelvis - IV Contrast Only In Process Unspecified. EDMS 15:33 EKG done, by ED staff, reviewed by Tamela CHUA. me1 15:54 Called [facility] to arrange transportation for transport back to facility. sp 16:17 IV discontinued, intact, bleeding controlled, No redness/swelling at site. Pressure me1 dressing applied. Administered Medications: 14:29 Drug: fentaNYL (PF) IVP 25 mcg IVP once Route: IVP; Site: left antecubital; me1 14:40 Follow up: Pain 4/10 Adult; Response: No adverse reaction; Pain is decreased me1 14:29 Drug: diphenhydrAMINE IVP 12.5 mg IVP once Route: IVP; Site: left antecubital; me1 14:39 Follow up: Response: No adverse reaction me1 14:30 Drug: Famotidine IVP 20 mg IVP once; dilute with 10 mL 0.9% NaCl; give over 2 minutes me1 Route: IVP; Site: left antecubital; 14:39 Follow up: Response: No adverse reaction me1 14:30 Drug: Ondansetron IVP 4 mg IVP once; over 2 minutes Route: IVP; Site: left antecubital; me1 14:39 Follow up: Response: No adverse reaction; Nausea is decreased me1 14:30 Drug: NS 0.9% IV 1000 ml IV at 1 bolus Per protocol; to be given as a bolus over 60 me1 minutes Route: IV; Rate: 1 bolus; Site: left antecubital; 16:10 Follow up: Response: No adverse reaction; IV Status: Completed infusion; IV Intake: me1 1000ml 14:44 Drug: Magnesium Sulfate IVPB 2 grams IVPB once over 1 hrs Route: IVPB; Infused Over: 1 me1 hrs; Site: left antecubital; 15:49 Follow up: Response: No adverse reaction; IV Status: Completed infusion; IV Intake: [id number] 15:53 Drug: fentaNYL (PF) IVP 25 mcg IVP once Route: IVP; Site: left antecubital; me1 15:55 Follow up: Response: No adverse reaction; Pain is decreased me1 Medication: 13:51 VIS not applicable for this client. me1 Intake: 15:49 IV: 50ml; Total: 50ml. me1 16:10 IV: 1000ml; Total: 1050ml. me1 Outcome: 15:54 Discharge ordered by . manuela 16:17 Discharged to detention. Report called to KARAN Guo Transfer form completed. me1 16:17 Condition: stable 16:17 Instructed on discharge instructions, follow up and referral plans. Demonstrated understanding of instructions, follow-up care, 16:34 Patient left the ED. me1 Signatures: Dispatcher [employer] Tamela Rankin, CANDIDO-C SPORTS INSTRUCTOR-Anne Power Michelle, RN RN me1
[2024-06-14 16:38] VITALS: TEMP 98.4
[2024-06-14 16:44] VITALS: BP 108/59; O2SAT 96
--- NOTE | 2024-06-15 16:46 | EKG ---
Test Date: 2024-06-14 Test Time: 15:30:38 Car Racer: MEASUREMENT RESULTS: Intervals: Rate: 81 NH: 176 QRSD: 98 QT: 392 QTc: 455 [place]: P: 77 NH: 176 QRS: -56 T: 55 INTERPRETIVE STATEMENTS: Normal sinus rhythm Left anterior fascicular block Abnormal ECG Compared to ECG 02/14/2019 20:26:47 Left anterior fascicular block now present Left-axis deviation no longer present Intraventricular conduction delay no longer present Electronically Signed On 06-15-24 16:43:48 DENTAL EQUIPMENT REPAIRER by Lloyd Perez
== END 2024-06-14 16:34 | disposition home or self-care (01) ==
LOC: ER 13:42
DX: R10.84 Generalized abdominal pain (principal); F17.210 Nicotine dependence, cigarettes, uncomplicated
CPT/HCPCS: 96365; 96361; 93005; 85025; 36415; 83690; 80053; 74177; 96375; 99285; Q9967; J3475; J1200; J3010 ×2; J2405; J7030

== ENCOUNTER 2024-06-17 22:10 | Emergency (ER) | payer OTHER ==
[2024-06-17] MEDS ORDERED: DICYCLOMINE HCL 20 MG/2 ML AMP IM ONE (22:30)
--- NOTE | 2024-06-17 22:30 | EDPHYS ---
Physician Documentation [facility] Name: Fantasma Rdz Age: 59 yrs Sex: Male : 1965 Arrival Date: 06/17/2024 Time: 22:10 Bed 17 Private MD: ED Physician Keren Lucas HPI: 06/17 22:27 This 59 yrs old Male presents to ER via Unassigned with complaints of Abdominal Pain. sp3 22:27 59-year-old male with history of schizophrenia and chronic abdominal pain who is also sp3 seeing Dr. Sanchez who was evaluated. Patient has had 2 negative workup here including CT scans. He repeatedly has asked for fentanyl. Today he states that his pain is coming back and he requested transport here. He was offered meds at his facility but stated he wanted to go to the ER. He denies any fever, headache, neck pain, chest pain, shortness of breath, back pain, symptoms, vomiting, diarrhea, rash, syncope, near syncope, or any other signs or symptoms on ROS at this time.. Historical: - Allergies: 22:56 ACETAMINOPHEN; ay 22:56 ambien; ay 22:56 Aspirin; ay 22:56 dihydroergotamine; ay 22:56 PENICILLINS; ay 22:56 Primaxin; ay 22:56 Toradol; ay 22:56 tramadol; ay 22:56 Vioxx; ay - Home Meds: 22:56 bupropion HCl 150 mg Oral TbER 1 tab once daily [Active]; furosemide 40 mg Oral tab 1 ay tab 2 times per day [Active]; gabapentin 400 mg Oral cap 1 cap 3 times per day [Active]; [place] Carbonate Oral [Active]; Propranolol Oral [Active]; ziprasidone HCl 60 mg Oral cap 1 cap daily [Active]; - PMHx: 22:56 Bipolar disorder; Dementia; frostbite left foot; Hypercholesterolemia; Hypertensive ay disorder; Hypothyroidism; Schizophrenia; - PSHx: 22:56 Cholecystectomy; ay - Immunization history:: Flu vaccine is up to date. - Infectious Disease History:: Denies. - Social history:: Smoking status: Patient reports the use of cigarette tobacco products, denies chronic smoking, but will smoke occasionally. ROS: 22:28 Constitutional: Negative for fever, chills, and weight loss, Eyes: Negative for injury, sp3 pain, redness, and discharge, ENT: Negative for injury, pain, and discharge, Neck: Negative for injury, pain, and swelling, Cardiovascular: Negative for chest pain, palpitations, and edema, Respiratory: Negative for shortness of breath, cough, wheezing, and pleuritic chest pain, Back: Negative for injury and pain, : Negative for injury, bleeding, discharge, and swelling, MS/Extremity: Negative for injury and deformity, Skin: Negative for injury, rash, and discoloration, Neuro: Negative for headache, weakness, numbness, tingling, and seizure, Psych: Negative for depression, anxiety, suicide ideation, homicidal ideation, and hallucinations, Allergy/Immunology: Negative for hives, rash, and allergies, Endocrine: Negative for neck swelling, polydipsia, polyuria, polyphagia, and marked weight changes, Hematologic/Lymphatic: Negative for swollen nodes, abnormal bleeding, and unusual bruising, 22:28 All other systems are negative, Exam: 22:28 Constitutional: This is a well developed, well nourished patient who is awake, alert, sp3 and in no acute distress. Head/Face: Normocephalic, atraumatic. Eyes: Pupils equal round and reactive to light, extra-ocular motions intact. Lids and lashes normal. Conjunctiva and sclera are non-icteric and not injected. Cornea within normal limits. Periorbital areas with no swelling, redness, or edema. ENT: Nares patent. No nasal discharge, no septal abnormalities noted. External auditory canals are clear. Oropharynx with no redness, swelling, or masses, exudates, or evidence of obstruction, uvula midline. Mucous membranes moist. Neck: Trachea midline, no thyromegaly or masses palpated, and no cervical lymphadenopathy. Supple, full range of motion without nuchal rigidity, or vertebral point tenderness. No Meningismus. Chest/axilla: Normal chest wall appearance and motion. Nontender with no deformity. No lesions are appreciated. Cardiovascular: Regular rate and rhythm with a normal S1 and S2. No gallops, murmurs, or rubs. Normal PMI, no JVD. No pulse deficits. Respiratory: Lungs have equal breath sounds bilaterally, clear to auscultation and percussion. No rales, rhonchi or wheezes noted. No increased work of breathing, no retractions or nasal flaring. Back: No spinal tenderness. No costovertebral tenderness. Full range of motion. Skin: Warm, dry with normal turgor. Normal color with no rashes, no lesions, and no evidence of cellulitis. MS/ Extremity: Pulses equal, no cyanosis. Neurovascular intact. Full, normal range of motion. Neuro: Awake and alert, GCS 15, oriented to person, place, time, and situation. Cranial nerves II-XII grossly intact. Motor strength 5/5 in all extremities. Sensory grossly intact. Cerebellar exam normal. Normal gait. Psych: Awake, alert, with orientation to person, place and time. Behavior, mood, and affect are within normal limits. 22:28 Abdomen/GI: Very mild diffuse tenderness without peritoneal signs, rebound or guarding. Patient in no acute distress resting comfortably. Vital signs are normal., Vital Signs: 22:30 BP 108 / 42; Pulse 73; Resp 19; Temp 98.2; Pulse Ox 94% on R/A; ay 23:03 BP 112 / 87; Pulse 82; Resp 16; Pulse Ox 98% on R/A; ay MDM: 22:13 Medical Screening Exam initiated sp3 22:29 Data reviewed: vital signs, nurses notes, old medical records. ED course: 59-year-old sp3 male with chronic abdominal pain. Believe patient has an acute process. Clinically have ruled out any surgical abdomen, pathology, aortic pathology, or any other critical process. Patient will receive Bentyl IM and be discharged back to care facility.. Administered Medications: 22:33 Drug: Dicyclomine IM 20 mg IM once Route: IM; Site: right deltoid; ay 23:07 Follow up: Response: No adverse reaction ay Disposition Summary: 06/17/24 22:29 Discharge Ordered Notes: Location: Home sp3 Condition: Stable sp3 Diagnosis - Abdominal pain sp3 Followup: sp3 - With: Private Physician - When: Upon discharge from the Emergency Department - Reason: Continuance of care Discharge Instructions: - Discharge Summary Sheet sp3 - Abdominal Pain, Adult sp3 Forms: - Medication Reconciliation Form sp3 - Antibiotic Education sp3 - Prescription Opioid Use sp3 - Patient Portal Instructions sp3 - Leadership Thank You Letter sp3 Signatures: Keren Lucas MD MD sp3 Siva Vick RN RN ay
--- NOTE | 2024-06-17 23:07 | ER ---
Nurse's Notes [facility] Name: Fantasma Rdz Age: 59 yrs Sex: Male : 1965 Arrival Date: 06/17/2024 Time: 22:10 Bed 17 Private MD: Diagnosis: Abdominal pain Presentation: 06/17 22:15 Chief complaint: EMS states: Right Upper Quadrant pain. Coronavirus screen: Client ay denies travel out of the [place] in the last 14 days. Ebola Screen: No symptoms or risks identified at this time. 22:15 Method Of Arrival: EMS: [facility] ay 22:30 Initial Sepsis Screen: Does the patient meet any 2 criteria? No. Patient's initial ay sepsis screen is negative. Does the patient have a suspected source of infection? No. Patient's initial sepsis screen is negative. Risk Assessment: Do you want to hurt yourself or someone else? Patient reports no desire to harm self or others. Note BIBA for c/o RUQ pain 10/26. Alert and Oriented, no distress noted. Onset of symptoms was June 17, 2024. 22:30 Acuity: RUT 4 ay Triage Assessment: 22:56 General: Appears in no apparent distress. Behavior is calm, cooperative. Pain: ay Complains of pain in RUQ Pain currently is 7 out of 10 on a pain scale. EENT: No signs and/or symptoms were reported regarding the EENT system. Neuro: Level of Consciousness is awake, alert, obeys commands, Oriented to person, place, time, situation, Speech is normal. Cardiovascular: Denies chest pain, nausea, vomiting. Respiratory: Denies cough, shortness of breath. GI: Abd is soft X 4 quads Abdomen is tender to palpation in right upper quadrant. : No signs and/or symptoms were reported regarding the genitourinary system. Derm: No signs and/or symptoms reported regarding the dermatologic system. Historical: - Allergies: 22:56 ACETAMINOPHEN; ay 22:56 ambien; ay 22:56 Aspirin; ay 22:56 dihydroergotamine; ay 22:56 PENICILLINS; ay 22:56 Primaxin; ay 22:56 Toradol; ay 22:56 tramadol; ay 22:56 Vioxx; ay - Home Meds: 22:56 bupropion HCl 150 mg Oral TbER 1 tab once daily [Active]; furosemide 40 mg Oral tab 1 ay tab 2 times per day [Active]; gabapentin 400 mg Oral cap 1 cap 3 times per day [Active]; [place] Carbonate Oral [Active]; Propranolol Oral [Active]; ziprasidone HCl 60 mg Oral cap 1 cap daily [Active]; - PMHx: 22:56 Bipolar disorder; Dementia; frostbite left foot; Hypercholesterolemia; Hypertensive ay disorder; Hypothyroidism; Schizophrenia; - PSHx: 22:56 Cholecystectomy; ay - Immunization history:: Flu vaccine is up to date. - Infectious Disease History:: Denies. - Social history:: Smoking status: Patient reports the use of cigarette tobacco products, denies chronic smoking, but will smoke occasionally. Screenin:01 [facility] ED Fall Risk Assessment (Adult) History of falling in the last 3 months, ay including since admission No falls in past 3 months (0 pts) Confusion or Disorientation No (0 pts) Intoxicated or Sedated No (0 pts) Impaired Gait Yes (1 pt) Mobility Assist Device Used No (0 pt) Altered Elimination No (0 pt) Score/Fall Risk Level 0 - 2 = Low Risk Oriented to surroundings, Maintained a safe environment, Educated pt \T\ family on fall prevention, incl call for assistance when getting out of bed. Abuse screen: Denies threats or abuse. Nutritional screening: No deficits noted. Tuberculosis screening: No symptoms or risk factors identified. Assessment: 23:01 General: See Triage Assessments. 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 ay 23:42 Reassessment: picked up by [facility]. ay Vital Signs: 22:30 BP 108 / 42; Pulse 73; Resp 19; Temp 98.2; Pulse Ox 94% on R/A; ay 23:03 BP 112 / 87; Pulse 82; Resp 16; Pulse Ox 98% on R/A; ay ED Course: 22:10 Patient arrived in ED. [id number] 22:13 Keren Lucas MD is Attending Physician. sp3 22:15 Patient has correct armband on for positive identification. Bed in low position. Call vc1 light in reach. Pulse ox on. NIBP on. 22:15 Provided Education on: call light. vc1 22:15 Arm band placed on right wrist. vc1 22:27 Siva Vick, RN is Primary Nurse. ay 22:55 Triage completed. ay 23:04 No provider procedures requiring assistance completed. Patient did not have IV access vc1 during this emergency room visit. Administered Medications: 22:33 Drug: Dicyclomine IM 20 mg IM once Route: IM; Site: right deltoid; ay 23:07 Follow up: Response: No adverse reaction ay Medication: 23:04 VIS not applicable for this client. vc1 Outcome: :29 Discharge ordered by MD. dillon 23:03 Discharged to residential. Report called to [facility] ay 23:03 Condition: stable 23:03 Discharge instructions given to patient, Instructed on discharge instructions, Demonstrated understanding of instructions, 23:06 Patient left the ED. ay Signatures: Keren Lucas MD MD sp3 Tiff [id number] Hortencia Shirley RN RN vc1 Siva Vick RN RN ay
[2024-06-17 23:11] VITALS: TEMP 98.2
[2024-06-17 23:13] VITALS: BP 112/87; O2SAT 98
== END 2024-06-17 23:06 | disposition home or self-care (01) ==
LOC: ER 22:10
DX: R10.9 Unspecified abdominal pain (principal); Z88.0 Allergy status to penicillin; Z88.5 Allergy status to narcotic agent; Z88.8 Allergy status to other drugs, medicaments and biological substances
CPT/HCPCS: J0500